=== PATIENT | female | born 1985 | race Caucasian/White ===

== ENCOUNTER 2016-05-07 13:41 | Emergency (ER) | payer OTHER ==
[2016-05-07 14:30] VITALS: BP 96/67; PULSE 63; TEMP 98.4; BMI 21.6
--- NOTE | 2016-05-07 15:59 | PDOC ---
History of Present Illness - General Chief Complaint: Headache Stated Complaint: HEADACHES, DIZZINESS Time Seen by Provider: 05/07/16 15:50 History Source: Patient Exam Limitations: No Limitations - History of Present Illness Initial Comments: 05/07/16 16:36 Chief complaint: Intermittent headache 3 weeks, dry cough times one week History of present illness: Patient is a 30-year-old female with a history of asthma here today complaining of headache on and off frontal area 3 weeks and has been consistent presently for approximately 1 week. Patient reports going to [facility] on 04/28/2016 was told that headache was due to nasal congestion and sinus congestion was given Sudafed and nasal spray. Patient reports that she felt better for 2 days then symptoms recurred. Patient reports that intermittently she feels slightly nauseous when she has the headache. Patient points to frontal area of head when asked where pain is however will not put her head down to see if pain increases with her head downward and sinus areas. She reports using her albuterol pump every 4 hours for the last week. Pt. denies any chance of . Patient eyes any shortness of breath currently. 05/07/16 16:45 05/07/16 16:49 Timing/Duration: intermittent (for 3 weeks ) Severity: moderate Associated Symptoms: reports: cough (dry ), headaches (frontal, nasal ), other ( with intermittent lightheadedness) Past History - Past Medical History Allergies/Adverse Reactions: Allergies Allergy/AdvReac Type Severity Reaction Status Date / Time acetaminophen [From Vicodin] Allergy Verified 07/20/15 09:10 hydrocodone bitartrate Allergy Verified 07/20/15 09:10 [From Vicodin] Home Medications: Ambulatory Orders Amox-Tr/K Cl [Augmentin - 875Mg Tablet] 1 tab PO BID #20 tablet MDD 2 05/07/16 Fexofenadine HCl [Leigh Ann Allergy] 180 mg PO DAILY #10 tablet 05/07/16 Fluticasone Prop 0.05% Nasal [Flonase -] 2 spray NS DAILY #1 spray.pump Prednisone [Deltasone -] 20 mg PO BID #8 tablet 05/07/16 Asthma: Yes Suicide Attempt (Hx): No - Family Disease History Family Disease History: CA: Father (brain tumor ) - Psycho/Social/Smoking Cessation Hx Anxiety: No Suicidal Ideation: No Smoking Status: No Smoking History: Never smoked Number of Cigarettes Smoked Daily: 0 Hx Alcohol Use: No Drug/Substance Use Hx: No Substance Use Type: None Review of Systems - Review of Systems Able to Perform ROS?: Yes Constitutional: No: Symptoms Reported HEENTM: Yes: Nose Congestion Respiratory: Yes: Cough (dry cough for ) Cardiac (ROS): Yes: Symptoms Reported, Lightheadedness (intermittent ) ABD/GI: Yes: Nausea (intermittently ) : No: Symptoms Reported Musculoskeletal: No: Symptoms Reported Integumentary: No: Symptoms Reported Neurological: No: Symptoms reported *Physical Exam - Vital Signs Last Vital Signs Temp Pulse Resp BP Pulse Ox 98.4 F 63 14 96/67 100 05/07/16 14:25 05/07/16 14:25 05/07/16 14:25 05/07/16 14:25 05/07/16 14:25 - Physical Exam General Appearance: Yes: Appropriately Dressed HEENT: positive: EOMI, LE, Pharyngeal Erythema, Nasal Congestion (superior turbinate edema b/l ), Sinus Tenderness (frontal, spenoid b/l ). negative: Tonsillar Exudate, Tonsillar Erythema, Rhinorrhea Neck: positive: Lymphadenopathy (L). negative: Lymphadenopathy (R) Respiratory/Chest: positive: Lungs Clear, Normal Breath Sounds. negative: Chest Tender, Respiratory Distress Cardiovascular: positive: Regular Rhythm, Regular Rate, S1, S2 Integumentary: positive: Normal Color Neurologic: positive: cut out worker II-XII NML intact, Fully Oriented, Alert, Normal Response, Responsive, Finger to Nose. negative: Respond to painful stimul, Sensory Deficit Medical Decision Making - Medical Decision Making 05/07/16 16:50 Patient is a 30-year-old female with a history of asthma here today complaining of headache on and off frontal area 3 weeks and has been consistent presently for approximately 1 week. Patient reports going to [facility] on 2015 was told that headache was due to nasal congestion and sinus congestion was given Sudafed and nasal spray. Patient reports that she felt better for 2 days then symptoms recurred. Patient reports that intermittently she feels slightly nauseous when she has the headache. Patient points to frontal area of head when asked where pain is however will not put her head down to see if pain increases with her head downward and sinus areas. She reports using her albuterol pump every 4 hours for the last week. Pt. denies any chance of . Patient eyes any shortness of breath currently. 05/07/16 16:58 Nasal congestion, sinusitis frontal spenoid Asthma exacerbation PLAN: urine hcg negative leigh ann 180 mg daily ofr 10 days prednisone 40 mg once, than 20 mg bid for following 4 days augmentin 875mg/125 mg bid for 10 days Flonase 2 sprays each nostril daily X 10 days snellen 20/20 ou, os, od 05/07/16 16:59 05/07/16 17:05 *DC/Admit/Observation/Transfer Diagnosis at time of Disposition: Nasal congestion, Asthma exacerbation Sinusitis Qualifiers: Sinusitis location: unspecified location Chronicity: acute Recurrence: non- recurrent Qualified Code(s): J01.90 - Acute sinusitis, unspecified - Discharge Dispostion Disposition: HOME Condition at time of disposition: Stable - Patient Instructions Additional Instructions: Follow Up with your primary care provider within the next few days Return to emergency room if symptoms worsen Apply a warm washcloth your face to help facilitate sinus drainage every few hours Drink a lot of fluids and rest Patient voiced understanding of discharge instructions and all questions were answered
[2016-05-07] MEDS ORDERED: KETOROLAC TROMETHAMINE 60 MG/2 ML VIAL IM ONE (16:57)
[2016-05-07] MEDS ORDERED: predniSONE 20 MG TABLET (UD) PO ONE (16:57)
[2016-05-07] MEDS ORDERED: KETOROLAC TROMETHAMINE 60 MG/2 ML VIAL ONE (17:06)
[2016-05-07] MEDS ORDERED: predniSONE 20 MG TABLET (UD) ONE (17:06)
== END 2016-05-07 17:12 | disposition home or self-care (01) ==
LOC: JERFT 13:41
PROC: 3E0233Z Introduction of Anti-inflammatory into Muscle, Percutaneous Approach (ICD-10-PCS; principal; 2016-05-07)
DX: J45.901 Unspecified asthma with (acute) exacerbation (principal); J01.90 Acute sinusitis, unspecified
CPT/HCPCS: 84703; 87070; 87430; 99281-25

== ENCOUNTER 2017-04-15 17:10 | Emergency (ER) | payer OTHER ==
--- NOTE | 2017-04-15 17:42 | PDOC ---
Rapid Medical Evaluation Time Seen by Provider: 04/15/17 17:39 Medical Evaluation: Allergies Allergy/AdvReac Type Severity Reaction Status Date / Time acetaminophen [From Vicodin] Allergy Verified 07/20/15 09:10 hydrocodone bitartrate Allergy Verified 07/20/15 09:10 [From Vicodin] 04/15/17 17:40 The patient presents with a chief complaint of: upper abd pain x 4 days, + nausea, - vomiting, upreg- I have performed a brief in-person evaluation of this patient. Pertinent physical exam findings: vss I have ordered the following: cbc, comp, lipase, ua, upreg The patient will proceed to the ED for further evaluation. Discharge Disposition - Diagnosis Abdominal bloating, Back pain - Discharge Dispostion Disposition: HOME Condition at time of disposition: Stable - Referrals Referrals: STAFF,NOT ON [Primary Care Provider] - - Patient Instructions Printed Discharge Instructions: DI for Low Back Pain, DI for Abdominal Pain- Adult Additional Instructions: please take motrin oe aleve or tylenol for your back pain you can try gas x for your bloating return for persistent symptoms - Post Discharge Activity
[2017-04-15 17:43] VITALS: BP 109/56; PULSE 71; TEMP 98.4; BMI 22.1
[2017-04-15 18:07] LABS: BASOPHIL 0.6 % (0-2.0); EOSINOPHIL 0.8 % (0-4.5); MCH 25.4 pg (25.7-33.7); MCHC 32.2 g/dl (32.0-36.0); MEAN CELL VOLUME 78.8 fl (80-96); NEUTROPHILS 55.5 % (42.8-82.8); PLATELET COUNT 282 K/MM3 (134-434); RDW 14.5 % (11.6-15.6)
[2017-04-15 18:13] LABS: URINE APPEARANCE CLEAR; URINE BILIRUBIN NEGATIVE (NEGATIVE); URINE BLOOD NEGATIVE (NEGATIVE); URINE COLOR LTYELLOW; URINE GLUCOSE (UA) NEGATIVE (NEGATIVE); URINE KETONE NEGATIVE (NEGATIVE); URINE LEUK ESTERASE NEGATIVE (NEGATIVE); URINE NITRITE NEGATIVE (NEGATIVE); URINE PROTEIN NEGATIVE (NEGATIVE); URINE UROBILINOGEN NEGATIVE mg/dL (0.2-1.0)
[2017-04-15 18:40] LABS: ALBUMIN 3.8 g/dl (3.4-5.0); ALK PHOS 87 U/L (45-117); ANION GAP 6 (8-16); BILIRUBIN,TOTAL 0.2 mg/dL (0.2-1.0); CALCIUM 9.1 mg/dL (8.5-10.1); CO2 28 mmol/L (21-32); CREATININE 0.8 mg/dL (0.55-1.02); GLUCOSE,RANDOM 81 mg/dL (74-106); SGOT/AST 10 U/L (15-37); SGPT/ALT 17 U/L (12-78); TOT PROT 7.5 g/dl (6.4-8.2)
[2017-04-15] MEDS ORDERED: KETOROLAC TROMETHAMINE 60 MG/2 ML VIAL IM ONE (19:55)
--- NOTE | 2017-04-15 20:05 | PDOC ---
History of Present Illness - General History Source: Patient Exam Limitations: No Limitations - History of Present Illness Initial Comments: 04/15/17 20:41 The patient is a 31 year old female with history of chronic lower back pain who recently completed a 1 week course of Eyrthromycin/Flagyl for BV who presents to the ED complaining of several days of mild diffuse abdominal discomfort and "abdominal bloating". Symptoms began secondary to antibiotic use. The patient also complains of several days of lower back pain that is similar in nature to her chronic lower back pain. She states she is concerned about a kidney stone. No focal abdominal pain. No nausea, vomiting, or diarrhea. No fever or chills. No chest pain or shortness of breath. <Katarina Ang - Last Filed: 04/15/17 20:51> <Aliza Zamarripa - Last Filed: 04/15/17 21:05> - General Chief Complaint: Pain, Acute Stated Complaint: STOMACH PAIN Time Seen by Provider: 04/15/17 17:39 Past History <Katarina Ang - Last Filed: 04/15/17 20:51> - Past Medical History Asthma: Yes COPD: No - Family Disease History Family Disease History: CA: Father (brain tumor ) - Suicide/Smoking/Psychosocial Hx Smoking Status: No Smoking History: Never smoked Number of Cigarettes Smoked Daily: 0 Hx Alcohol Use: No Drug/Substance Use Hx: No Substance Use Type: None <Aliza Zamarripa - Last Filed: 04/15/17 21:05> - Past Medical History Allergies/Adverse Reactions: Allergies Allergy/AdvReac Type Severity Reaction Status Date / Time acetaminophen [From Vicodin] Allergy Verified 04/15/17 17:40 hydrocodone bitartrate Allergy Verified 04/15/17 17:40 [From Vicodin] Home Medications: Ambulatory Orders Fexofenadine HCl [Leigh Ann Allergy] 180 mg PO DAILY #10 tablet 05/07/16 Review of Systems - Review of Systems Able to Perform ROS?: Yes Comments:: 04/15/17 20:43 GENERAL/CONSTITUTIONAL: No fever or chills. No weakness. HEAD, EYES, EARS, NOSE AND THROAT: No change in vision. No ear pain or discharge. No sore throat. CARDIOVASCULAR: No chest pain or shortness of breath. RESPIRATORY: No cough, wheezing, or hemoptysis. GASTROINTESTINAL: +Diffuse abdominal discomfort, "bloating". No nausea, vomiting , diarrhea or constipation. GENITOURINARY: No dysuria, frequency, or change in urination. MUSCULOSKELETAL: +Lower back pain. No joint or muscle swelling or pain. No neck pain. SKIN: No rash NEUROLOGIC: No headache, vertigo, loss of consciousness, or change in strength/ sensation. ENDOCRINE: No increased thirst. No abnormal weight change. HEMATOLOGIC/LYMPHATIC: No anemia, easy bleeding, or history of blood clots. ALLERGIC/IMMUNOLOGIC: No hives or skin allergy. <Katarina Ang - Last Filed: 04/15/17 20:51> *Physical Exam - Vital Signs Last Vital Signs Temp Pulse Resp BP Pulse Ox 98.4 F 71 19 109/56 100 04/15/17 17:40 04/15/17 17:40 04/15/17 17:40 04/15/17 17:40 04/15/17 17:40 - Physical Exam Comments: 04/15/17 20:43 GENERAL: Awake, alert, and fully oriented, in no acute distress HEAD: No signs of trauma EYES: PERRLA, EOMI, sclera anicteric, conjunctiva clear ENT: Auricles normal inspection, nares patent. Moist mucosa NECK: Normal ROM, supple, no JVD, or masses LUNGS: Breath sounds equal, clear to auscultation bilaterally. No wheezes, and no crackles HEART: Regular rate and rhythm, normal S1 and S2, no murmurs, rubs or gallops ABDOMEN: Soft, nontender, normoactive bowel sounds. No guarding, no rebound. No masses BACK: Nontender to palpation. No gross deformity. EXTREMITIES: Normal range of motion, no edema. No clubbing or cyanosis. No cords, erythema, or tenderness NEUROLOGICAL: Alert and oriented x 3. Moves all extremities. Face is symmetric. SKIN: Warm, Dry, normal turgor, no rashes or lesions noted. <Katarina Ang - Last Filed: 04/15/17 20:51> - Vital Signs Last Vital Signs Temp Pulse Resp BP Pulse Ox 98.4 F 71 19 109/56 100 04/15/17 17:40 04/15/17 17:40 04/15/17 17:40 04/15/17 17:40 04/15/17 17:40 <Aliza Zamarripa - Last Filed: 04/15/17 21:05> ED Treatment Course - LABORATORY CBC & Chemistry Diagram: 04/15/17 17:40 04/15/17 17:40 - ADDITIONAL ORDERS Additional order review: Laboratory Results 04/15/17 04/15/17 04/15/17 17:40 17:40 17:40 Sodium 139 Potassium 4.0 Chloride 105 Carbon Dioxide 28 Anion Gap 6 L BUN 14 D Creatinine 0.8 Creat Clearance w eGFR > 60 Random Glucose 81 Calcium 9.1 Total Bilirubin 0.2 AST 10 L ALT 17 Alkaline Phosphatase 87 Total Protein 7.5 Albumin 3.8 Lipase 169 167 Urine Color Ltyellow Urine Appearance Clear Urine pH 5.0 D Ur Specific [place] 1.019 Urine Protein Negative Urine Glucose (UA) Negative Urine Ketones Negative Urine Blood Negative Urine Nitrite Negative Urine Bilirubin Negative Urine Urobilinogen Negative Urine HCG, Qual Negative 04/15/17 17:40 RBC 4.59 MCV 78.8 L MCHC 32.2 RDW 14.5 D MPV 9.0 D Neutrophils % 55.5 D Lymphocytes % 35.9 D Monocytes % 7.2 Eosinophils % 0.8 D Basophils % 0.6 <Katarina Ang - Last Filed: 04/15/17 20:51> - LABORATORY CBC & Chemistry Diagram: 04/15/17 17:40 04/15/17 17:40 - ADDITIONAL ORDERS Additional order review: Laboratory Results 04/15/17 04/15/17 04/15/17 17:40 17:40 17:40 Sodium 139 Potassium 4.0 Chloride 105 Carbon Dioxide 28 Anion Gap 6 L BUN 14 D Creatinine 0.8 Creat Clearance w eGFR > 60 Random Glucose 81 Calcium 9.1 Total Bilirubin 0.2 AST 10 L ALT 17 Alkaline Phosphatase 87 Total Protein 7.5 Albumin 3.8 Lipase 169 167 Urine Color Ltyellow Urine Appearance Clear Urine pH 5.0 D Ur Specific [place] 1.019 Urine Protein Negative Urine Glucose (UA) Negative Urine Ketones Negative Urine Blood Negative Urine Nitrite Negative Urine Bilirubin Negative Urine Urobilinogen Negative Urine HCG, Qual Negative 04/15/17 17:40 RBC 4.59 MCV 78.8 L MCHC 32.2 RDW 14.5 D MPV 9.0 D Neutrophils % 55.5 D Lymphocytes % 35.9 D Monocytes % 7.2 Eosinophils % 0.8 D Basophils % 0.6 <Aliza Zamarripa - Last Filed: 04/15/17 21:05> Medical Decision Making - Medical Decision Making 04/15/17 20:50 Just finished 7 days course of erythromycin presents with some generalized abdominal bloating. She denies fever or chills or vomiting or diarrhea. Abdominal exam is benign. There is no focal tenderness, no rebound, no guarding She has a negative test Urinalysis is negative for infection Patient has chronic back pain and her pain. Her back pain has been worse over the last couple days <Aliza Zamarripa - Last Filed: 04/15/17 21:05> *DC/Admit/Observation/Transfer - Attestations Scribe Attestion: 04/15/17 20:44 Documentation prepared by Katarina Ang, acting as medical assisting instructor for Aliza Zamarripa MD. <Katarina Ang - Last Filed: 04/15/17 20:51> <Aliza Zamarripa - Last Filed: 04/15/17 21:05> Diagnosis at time of Disposition: Abdominal bloating Back pain Qualifiers: Back pain location: low back pain Chronicity: chronic Back pain laterality: bilateral Sciatica presence: without sciatica Qualified Code(s): M54.5 - Low back pain - Discharge Dispostion Disposition: HOME Condition at time of disposition: Stable - Referrals Referrals: STAFF,NOT ON [Primary Care Provider] - - Patient Instructions Printed Discharge Instructions: DI for Low Back Pain, DI for Abdominal Pain- Adult Additional Instructions: please take motrin oe aleve or tylenol for your back pain you can try gas x for your bloating return for persistent symptoms - Post Discharge Activity
[2017-04-15] MEDS ORDERED: KETOROLAC TROMETHAMINE 60 MG/2 ML VIAL ONE (21:10)
[2017-04-15 22:44] LABS: URINE LEUK ESTERASE NEGATIVE (NEGATIVE)
== END 2017-04-15 21:20 | disposition home or self-care (01) ==
LOC: JER 17:10
PROC: 3E0233Z Introduction of Anti-inflammatory into Muscle, Percutaneous Approach (ICD-10-PCS; principal; 2017-04-15)
DX: R14.0 Abdominal distension (gaseous) (principal); Z79.2 Long term (current) use of antibiotics
CPT/HCPCS: 36415; 80053; 81003; 83690; 84703; 85025; 99282-25

== ENCOUNTER 2017-06-02 21:20 | Emergency (ER) | payer OTHER ==
[2017-06-02 21:24] VITALS: BP 131/90; PULSE 71; TEMP 98.4; BMI 22.6
--- NOTE | 2017-06-02 21:25 | PDOC ---
Rapid Medical Evaluation Chief Complaint: Urinary Problem Time Seen by Provider: 06/02/17 21:21 Medical Evaluation: Allergies Allergy/AdvReac Type Severity Reaction Status Date / Time acetaminophen [From Vicodin] Allergy Verified 06/02/17 21:22 hydrocodone bitartrate Allergy Verified 06/02/17 21:22 [From Vicodin] 06/02/17 21:23 The patient presents with a chief complaint of: [Urinary pain, frequency, hematuria, vaginal discharge and bleeding. ] I have performed a brief in-person evaluation of this patient. Pertinent physical exam findings: vss, [Mid lower abdominal discomfort. Lungs clear, RRR] I have ordered the following: [UA, UC, urine preg, GC/Chlam, rpr, requesting HIV] The patient will proceed to the ED for further evaluation. Discharge Disposition - Diagnosis Dysuria - Discharge Dispostion Last Admission D/C Date: 02/24/10 - Referrals - Patient Instructions - Post Discharge Activity
--- NOTE | 2017-06-02 21:45 | PDOC ---
History of Present Illness - General Chief Complaint: Urinary Problem Stated Complaint: POSSIBLE UTI Time Seen by Provider: 06/02/17 21:21 History Source: Patient - History of Present Illness Timing/Duration: reports: constant Quality: reports: burning Past History - Past Medical History Allergies/Adverse Reactions: Allergies Allergy/AdvReac Type Severity Reaction Status Date / Time acetaminophen [From Vicodin] Allergy Verified 06/02/17 21:22 hydrocodone bitartrate Allergy Verified 06/02/17 21:22 [From Vicodin] Home Medications: Ambulatory Orders Nitrofurantoin Monohyd/M-Cryst [Macrobid -] 100 mg PO BID #14 capsule 06/02/17 Asthma: Yes COPD: No - Family Disease History Family Disease History: CA: Father (brain tumor ) - Suicide/Smoking/Psychosocial Hx Smoking Status: No Smoking History: Never smoked Number of Cigarettes Smoked Daily: 0 Hx Alcohol Use: No Drug/Substance Use Hx: No Substance Use Type: None Review of Systems - Review of Systems Constitutional: No: Chills, Fever ABD/GI: No: Nausea, Vomiting : Yes: Dysuria, Frequency, Hematuria. No: Flank Pain Musculoskeletal: No: Back Pain *Physical Exam - Vital Signs Last Vital Signs Temp Pulse Resp BP Pulse Ox 98.4 F 71 18 131/90 100 06/02/17 21:22 06/02/17 21:22 06/02/17 21:22 06/02/17 21:22 06/02/17 21:22 - Physical Exam General Appearance: Yes: Appropriately Dressed. No: Apparent Distress HEENT: positive: Normal Voice Neck: positive: Supple Respiratory/Chest: negative: Respiratory Distress Gastrointestinal/Abdominal: negative: Tender, Soft Musculoskeletal: negative: CVA Tenderness Integumentary: positive: Dry, Warm Neurologic: positive: Fully Oriented, Alert, Normal Mood/Affect Medical Decision Making - Medical Decision Making 06/02/17 21:43 31-year-old female, history of asthma, here with dysuria with urinary frequency and hematuria since yesterday. No flank pain, nausea, vomiting, fever or chills. Patient also complaining of "cottage cheese discharge" for 2 weeks with foul odor, no itch, and was treated with Flagyl by her POLITICAL SCIENCE RESEARCH ASSISTANT. States vaginal discharge continues. States she was negative for gonorrhea and chlamydia. Had ? ASCUS on recent Pap smear, but negative HPV, to have repeat Pap smear in 6 months per patient. History of STDs or new sexual partner Pt well-appearing and stable with unremarkable exam. Rule out UTI. STD culture sent, but most likely will be negative given history. HIV requested by patient and pending 06/02/17 22:15 UA with bld/prot/LE and ?100 WBC. Will tx, no old sensitivities on record. No evidence of pyelo Patient states she will contact ED for results of HIV test *DC/Admit/Observation/Transfer Diagnosis at time of Disposition: Dysuria - Discharge Dispostion Disposition: HOME - Prescriptions Prescriptions: Nitrofurantoin Monohyd/M-Cryst [Macrobid -] 100 mg PO BID #14 capsule - Referrals Referrals: ON STAFF,NOT [Primary Care Provider] - - Patient Instructions Printed Discharge Instructions: DI for Urinary Tract Infection (UTI) Additional Instructions: Take antibiotics as prescribed and contact ED for test results at [phone] in 2-3 days - Post Discharge Activity
[2017-06-02 21:58] LABS: HCG,QUALITATIVE URINE NEGATIVE
[2017-06-02 21:59] LABS: URINE APPEARANCE CLOUDY; URINE BILIRUBIN NEGATIVE (NEGATIVE); URINE BLOOD 3+ (NEGATIVE); URINE COLOR YELLOW; URINE GLUCOSE (UA) NEGATIVE (NEGATIVE); URINE KETONE NEGATIVE (NEGATIVE); URINE LEUK ESTERASE 2+ (NEGATIVE); URINE NITRITE NEGATIVE (NEGATIVE); URINE PROTEIN 2+ (NEGATIVE); URINE UROBILINOGEN NEGATIVE mg/dL (0.2-1.0)
[2017-06-02 22:13] LABS: EPI CELLS MODERATE /HPF (FEW); URINE HYALINE CAST 6 /lpf; URINE MUCUS MANY
== END 2017-06-02 22:17 | disposition home or self-care (01) ==
LOC: JERFT 21:20 → JER 21:20 → JERFT 22:17
DX: N39.0 Urinary tract infection, site not specified (principal); Z11.4 Encounter for screening for human immunodeficiency virus [HIV]
CPT/HCPCS: 36415; 81003; 81015; 84703; 86593; 87086; 87389; 87491; 87591; 99281-25

== ENCOUNTER 2017-10-15 09:46 | Emergency (ER) | payer OTHER ==
[2017-10-15 09:56] VITALS: TEMP 98.2; BMI 24.2
--- NOTE | 2017-10-15 10:11 | PDOC ---
History of Present Illness - General History Source: Patient Exam Limitations: No Limitations <Maira Nesbitt - Last Filed: 10/15/17 13:08> - History of Present Illness Initial Comments: 10/15/17 10:21 The patient is a 32-year-old female, with a significant past medical history of asthma, who presents to the ED with midsternal chest pain that she noticed upon waking up at 6:45AM today. The patient states that the pain is constant, sharp- in-sensation, nonradiating, and worsened with movement and deep inspiration. The patient denies experiencing these symptoms in the past and she states that it is not similar the chest discomfort she experiences when she has an asthma exacerbation. She notes the pain gets worse with movement of her upper body, most notably when turning the steering wheel on the way to the ED. The patient denies any recent travel, strenuous activity, or trauma. The patient denies any lower extremity swelling. Patient is currently not on any oral contraceptives or exogenous hormones. Pt had breast augmentation 4yrs ago, no recent surgery. The patient denies any shortness of breath or palpitations. She denies any fever, chills, cough, nausea, vomiting, diarrhea, or abdominal pain. Allergies: hydrocodone bitartrate, acetaminophen <Misty Tapia - Last Filed: 10/15/17 14:13> - General Chief Complaint: Chest Pain Stated Complaint: CHEST PAIN Time Seen by Provider: 10/15/17 09:56 Past History <Maira Nesbitt - Last Filed: 10/15/17 13:08> - Past Medical History Asthma: Yes COPD: No - Family Disease History Family Disease History: CA: Father (brain tumor ) - Suicide/Smoking/Psychosocial Hx Smoking Status: No Smoking History: Never smoked Number of Cigarettes Smoked Daily: 0 Hx Alcohol Use: No Drug/Substance Use Hx: No Substance Use Type: None <Misty Tapia - Last Filed: 10/15/17 14:13> - Past Medical History Allergies/Adverse Reactions: Allergies Allergy/AdvReac Type Severity Reaction Status Date / Time acetaminophen [From Vicodin] Allergy Verified 10/15/17 09:50 hydrocodone bitartrate Allergy Verified 10/15/17 09:50 [From Vicodin] Home Medications: Ambulatory Orders NK [No Known Home Medication] 10/15/17 Review of Systems - Review of Systems Comments:: 10/15/17 10:21 GENERAL/CONSTITUTIONAL: No fever or chills. No weakness. HEAD, EYES, EARS, NOSE AND THROAT: No change in vision. No ear pain or discharge. No sore throat. GASTROINTESTINAL: No nausea, vomiting, diarrhea or constipation. GENITOURINARY: No dysuria, frequency, or change in urination. CARDIOVASCULAR: +chest pain, no shortness of breath. RESPIRATORY: No cough, wheezing, or hemoptysis. MUSCULOSKELETAL: No joint or muscle swelling or pain. No neck or back pain. SKIN: No rash NEUROLOGIC: No headache, vertigo, loss of consciousness, or change in strength/ sensation. ENDOCRINE: No increased thirst. No abnormal weight change. HEMATOLOGIC/LYMPHATIC: No anemia, easy bleeding, or history of blood clots. ALLERGIC/IMMUNOLOGIC: No hives or skin allergy. <Misty Tapia - Last Filed: 10/15/17 14:13> *Physical Exam - Vital Signs Last Vital Signs Temp Pulse Resp BP Pulse Ox 98.2 F 79 18 112/64 100 10/15/17 09:46 10/15/17 09:46 10/15/17 09:46 10/15/17 09:46 10/15/17 09:46 <Maira Nesbitt - Last Filed: 10/15/17 13:08> - Vital Signs Last Vital Signs Temp Pulse Resp BP Pulse Ox 98.2 F 79 18 112/64 100 10/15/17 09:46 10/15/17 09:46 10/15/17 09:46 10/15/17 09:46 10/15/17 09:46 - Physical Exam Comments: 10/15/17 10:22 GENERAL: Awake, alert, and fully oriented, in no acute distress HEAD: No signs of trauma EYES: PERRLA, EOMI, sclera anicteric, conjunctiva clear ENT: Auricles normal inspection, hearing grossly normal, nares patent, oropharynx clear without exudates. Moist mucosa NECK: Normal ROM, supple, no lymphadenopathy, JVD, or masses LUNGS: Breath sounds equal, clear to auscultation bilaterally. No wheezes, and no crackles HEART: +pinpoint ttp in mid sternum. Regular rate and rhythm, normal S1 and S2, no murmurs, rubs or gallops ABDOMEN: Soft, nontender, normoactive bowel sounds. No guarding, no rebound. No masses EXTREMITIES: Normal range of motion, no edema. No clubbing or cyanosis. No cords, erythema, or tenderness BACK: No midline spinal tenderness in cervical/thoracic/lumbar region NEUROLOGICAL: Normal speech, cranial nerves intact, negative pronator drift, 5/ 5 strength in all 4 extremities, normal sensation to light touch in all 4 extremities, normal cerebellar exam, normal gait, normal reflexes and tone SKIN: Warm, Dry, normal turgor, no rashes or lesions noted. <Misty Tapia - Last Filed: 10/15/17 14:13> Heart Score/ECG Review - History History: Slightly suspicious - Electrocardiogram EKG: Normal - Age Age: </= 45 - Risk Factors Based on the list above the patient has:: No risk factors known - Troponin Troponin: </= normal limit - Score Heart Score - Total: 0 #1 10/15/17 10:23 Twelve-lead EKG was performed and reviewed by me. Normal sinus rhythm, rate 75. Normal axis and intervals. No ST elevations or T-wave inversions. <Misty Tapia - Last Filed: 10/15/17 14:13> ED Treatment Course - LABORATORY CBC & Chemistry Diagram: 10/15/17 10:27 10/15/17 10:27 - RADIOLOGY Radiology Studies Ordered: 10/15/17 13:07 Chest X-Ray was reviewed by Dr. Tapia and over-read by Radiology. Impression: No evidence of active pulmonary disease. <Maira Nesbitt - Last Filed: 10/15/17 13:08> - LABORATORY CBC & Chemistry Diagram: 10/15/17 10:27 10/15/17 10:27 <Misty Tapia - Last Filed: 10/15/17 14:13> Medical Decision Making - Medical Decision Making 10/15/17 10:27 32-year-old female with a history of asthma presents emergency Department with midsternal chest pain. Vitals are unremarkable. Exam with reproducible chest pain. Heart score is 0 assuming troponin is negative. EKG is nonischemic. Likely musculoskeletal pain as it's positional, reproducible and pt has no RF. Unlikely ACS with heart score of 0 (assuming negative trop). Pt meets no PERC criteria, unlikely PE. Will check tropx2, UPT, tx pain and reassess. 10/15/17 14:11 Labs including trop x2 negative. CXR clear. Mild improvement in pain with toradol, acetaminophen given with moderate improvement in pain. Likely MSK. Pt feels well, is well appearing. Requests DC home I discussed the physical exam findings, ancillary test results and final diagnoses with the patient. I answered all of the patient's questions. The patient was satisfied with the care received and felt comfortable with the discharge plan and treatment plan. The patient will call their primary care physician within 24 hours to arrange follow-up and will return to the Emergency Department with any new, persistent or worsening symptoms. <Misty Tapia - Last Filed: 10/15/17 14:13> *DC/Admit/Observation/Transfer - Attestations Scribe Attestion: 10/15/17 10:36 Documentation prepared by Maira Nesbitt, acting as healthcare or medical for Misty Tapia MD. <Maira Nesbitt - Last Filed: 10/15/17 13:08> - Discharge Dispostion Decision to Admit order: No - Attestations Physician Attestion: 10/15/17 14:13 I, Dr. Misty Tapia MD, attest that this document has been prepared under my direction and personally reviewed by me in its entirety. I further attest, that it accurately reflects all work, treatment, procedures and medical decision -making performed by me. <Misty Tapia - Last Filed: 10/15/17 14:13> Diagnosis at time of Disposition: Chest pain - Discharge Dispostion Disposition: HOME Condition at time of disposition: Stable - Patient Instructions Printed Discharge Instructions: DI for Chest Pain Additional Instructions: Follow up with your primary doctor within 1 week. Your lab work showed that you have mild anemia, have your blood work repeated at your primary doctor as you may need iron supplements. Take tylenol or motrin as needed for pain. Return to the emergency department if you have any new, worsening, or concerning symptoms.
[2017-10-15 10:43] LABS: BASO % 0.5 % (0-2.0); EOS % 0.7 % (0-4.5); HEMATOCRIT 34.3 % (32.4-45.2); HEMOGLOBIN 10.9 GM/dL (10.7-15.3); LYMPH % 29.3 % (8-40); MCH 23.3 pg (25.7-33.7); MCHC 31.6 g/dl (32.0-36.0); MEAN CELL VOLUME 73.7 fl (80-96); MEAN PLT VOLUME 8.7 fl (7.5-11.1); MONO % 6.9 % (3.8-10.2); NEUT % 62.6 % (42.8-82.8); PLATELET COUNT 305 K/MM3 (134-434); RBC 4.66 M/mm3 (3.60-5.2); RDW 17.4 % (11.6-15.6); WHITE BLOOD COUNT 7.3 K/mm3 (4.0-10.0)
[2017-10-15 11:33] LABS: ALBUMIN 3.6 g/dl (3.4-5.0); ANION GAP 6 (8-16); BILIRUBIN,TOTAL 0.4 mg/dL (0.2-1.0); BLOOD UREA NITROGEN 11 mg/dL (7-18); CALCIUM 9.1 mg/dL (8.5-10.1); CHLORIDE 106 mmol/L (98-107); CO2 29 mmol/L (21-32); CREATININE 0.8 mg/dL (0.55-1.02); GLUCOSE,RANDOM 79 mg/dL (74-106); POTASSIUM 4.5 mmol/L (3.5-5.1); SGOT/AST 13 U/L (15-37); SGPT/ALT 19 U/L (12-78); SODIUM 141 mmol/L (136-145)
[2017-10-15 11:37] LABS: ALK PHOS 73 U/L (45-117); TOT PROT 7.4 g/dl (6.4-8.2)
[2017-10-15] MEDS ORDERED: KETOROLAC TROMETHAMINE 15 MG/ML VIAL IVPUSH ONE (11:37)
--- NOTE | 2017-10-15 11:46 | EKG ---
Test Reason : Blood Pressure : / mmHG Vent. Rate : 075 BPM Atrial Rate : 075 BPM P-R Int : 168 ms QRS Dur : 080 ms QT Int : 374 ms P-R-T Axes : 066 054 051 degrees QTc Int : 417 ms NORMAL SINUS RHYTHM NORMAL ECG NO PREVIOUS ECGS AVAILABLE Confirmed by ENEDINA BLANCHARD, YASSINE ([id number]) on 10/15/2017 11:46:26 AM Referred By: Confirmed By:YASSINE MCCONNELL MD
[2017-10-15] MEDS ORDERED: KETOROLAC TROMETHAMINE 15 MG/ML VIAL ONE (11:47)
[2017-10-15 13:04] VITALS: BP 95/61; PULSE 60
[2017-10-15] MEDS ORDERED: ACETAMINOPHEN 1000 MG/100 ML VIAL (NON FORMULARY) IVPB ONE (13:05)
[2017-10-15] MEDS ORDERED: ACETAMINOPHEN INJECTION 100 ML IVPB ONE (13:09)
== END 2017-10-15 14:35 | disposition home or self-care (01) ==
LOC: JER 09:46
PROC: 3E033NZ Introduction of Analgesics, Hypnotics, Sedatives into Peripheral Vein, Percutaneous Approach (ICD-10-PCS; principal; 2017-10-15)
PROC: 3E0333Z Introduction of Anti-inflammatory into Peripheral Vein, Percutaneous Approach (ICD-10-PCS; 2017-10-15)
DX: R07.9 Chest pain, unspecified (principal); J45.909 Unspecified asthma, uncomplicated
CPT/HCPCS: 36415; 71046-TC-FY; 80053; 84484; 84703; 85025; 93005; 93010; 99283-25; J0131